=== PATIENT | female | born 1990 | race Caucasian/White ===

== ENCOUNTER 2020-02-02 21:19 | Emergency (ER) | payer OTHER ==
[2020-02-02 21:28] VITALS: BMI 33.3
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
[2020-02-03] MEDS ORDERED: IBUPROFEN 600 MG TABLET (FP) PO ONE ×2 (00:20→00:23)
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
[2020-02-03 01:15] VITALS: BP 124/84; PULSE 92; TEMP 97.3
== END 2020-02-03 01:22 | disposition home or self-care (01) ==
LOC: JER 21:19
DX: M25.572 Pain in left ankle and joints of left foot (principal); M79.604 Pain in right leg; M79.605 Pain in left leg; V89.2XXA Person injured in unspecified motor-vehicle accident, traffic, initial encounter
CPT/HCPCS: 73523-TC-FY; 73552-TC-LT-FY; 73552-TC-RT-FY; 73610-TC-LT-FY; 73630-TC-LT; 99284-25